=== PATIENT | female | born 1995 | race Caucasian/White ===

== ENCOUNTER 2018-08-25 21:52 | Emergency (ER) | payer OTHER ==
[2018-08-25 22:00] VITALS: BP 137/87; PULSE 128; TEMP 102.7; BMI 20.3
[2018-08-25] MEDS ORDERED: ACETAMINOPHEN 500 MG TABLET (FP) PO ONE (22:02)
[2018-08-25] MEDS ORDERED: OSELTAMIVIR PHOSPHATE 75 MG CAPSULE ONE (22:06)
[2018-08-25] MEDS ORDERED: OSELTAMIVIR PHOSPHATE 75 MG CAPSULE PO ONE (22:06)
[2018-08-25] MEDS ORDERED: ACETAMINOPHEN 500 MG TABLET (FP) ONE (22:06)
--- NOTE | 2018-08-25 22:06 | PDOC ---
History of Present Illness - General History Source: Patient Exam Limitations: No Limitations - History of Present Illness Initial Comments: 08/25/18 22:06 A portion of this note was documented by scribe services under my direction. I have reviewed the details of the note, within reason, and agree with the documentation with the following case summary and management plan written by me. Patient treated in the ED. Nursing notes are reviewed and incorporated into the medical decision-making. Vital signs reviewed. Assessment plan: This is a 23-year-old female who did not get her flu shot this year and comes in with flulike symptoms. Patient has had symptoms less than 24 hours he started on Tamiflu. Patient given first dose here in the emergency room. Patient also given Tylenol and prescription sent to the pharmacy for more Tamiflu patient discharged home will follow-up with her primary care doctor <Viki Porter I - Last Filed: 08/25/18 22:10> - General History Source: Patient Exam Limitations: No Limitations - History of Present Illness Initial Comments: The patient is a 23 year old female, with no significant past medical history, who presents to the emergency department with flu symptoms. The patient states she woke up this morning feeling achy accompanied with a sore throat and dry cough, which has been progressively getting worse. Patient states she has been experiencing intermittent SOB and some nausea. Patient notes going to urgent care earlier today where she tested negative for the flu and denies having fever at that time. However, she states that when taking her own fever it has been high. Patient denies receiving the flu shot this year. She reports sick contact at work. The patient denies chest pain, headache and dizziness. The patient denies fever , chills, vomit, diarrhea and constipation. The patient denies dysuria, frequency, urgency and hematuria. PAST MEDICAL HISTORY: no significant history PAST SURGICAL HISTORY: no significant history FAMILY HISTORY: no pertinent history SOCIAL HISTORY: Pt lives with family and is employed. MEDICATIONS: reviewed ALLERGIES: As per nursing notes ROS General: (+) general malaise, (+)fever. No chills, no weight loss HEENT: (+) sore throat, No change in vision. No ear pain. CardioVascular: No chest pain Respiratory:(+) shortness of breath, (+)cough, or wheezing. Gastrointestinal: (+) nausea. No vomiting, diarrhea or constipation, No rectal bleeding Genitourinary: No dysuria, hematuria, or frequency Musculoskeletal: (+) muscle ache, No joint pain or swelling Neurologic: No headache, vertigo, dizziness or loss of consciousness Psychiatric: nor depression Skin: No rashes or easy bruising Endocrine: no increased thirst or abnormal weight change Allergic: no skin or latex allergy All other systems reviewed and normal Physical Exam: General: Well-nourished well-developed individual, no acute distress HEENT: Throat: (+) Posterior oropharynx mild erythema. Neck: Supple, no meningeal signs, no lymphadenopathy Eyes::Pupils equal reactive and round, extraocular motion intact Chest: Nontender to palpation Cardiac: S1-S2 normal, regular rate and rhythm, no murmurs rubs or gallops Respiratory: Lungs clear to auscultation bilateral Extremities: Warm, dry, no cyanosis, clubbing, or edema Skin: No rashes Neuro: Alert and oriented x3, nonfocal exam, grossly intact, normal gait Psych: Normal mood and affect 08/25/18 22:21 <Naty Carranza - Last Filed: 08/25/18 22:21> - General Chief Complaint: Cold Symptoms Stated Complaint: VIRAL SYMPTOMS Time Seen by Provider: 08/25/18 21:57 Past History - Immunization History Immunization Up to Date: Yes - Suicide/Smoking/Psychosocial Hx Smoking Status: Yes Smoking History: Current some day smoker Have you smoked in the past 12 months: Yes Number of Cigarettes Smoked Daily: 1 'Breaking Loose' booklet given: 11/10/15 Hx Alcohol Use: Yes Drug/Substance Use Hx: No Substance Use Type: Alcohol <Viki Porter I - Last Filed: 08/25/18 22:10> <Naty Carranza - Last Filed: 08/25/18 22:21> - Past Medical History Allergies/Adverse Reactions: Allergies Allergy/AdvReac Type Severity Reaction Status Date / Time No Known Allergies Allergy Verified 11/10/15 09:29 Home Medications: Ambulatory Orders Naproxen Sodium [Aleve] 1,300 mg PO ONCE 11/10/15 Norethindrone-E.estradiol-Iron [Gildess Fe 1-20 Tablet] 1 each PO DAILY Spironolactone [Aldactone] 50 mg PO DAILY 11/10/15 Oseltamivir Phosphate [Tamiflu] 75 mg PO BID #10 capsule 08/25/18 *Physical Exam - Vital Signs Last Vital Signs Temp Pulse Resp BP Pulse Ox 102.7 F H 128 H 16 137/87 99 08/25/18 21:55 08/25/18 21:55 08/25/18 21:55 08/25/18 21:55 08/25/18 21:55 <Naty Carranza - Last Filed: 08/25/18 22:21> Moderate Sedation - Procedure Monitoring Vital Signs: Procedure Monitoring Vital Signs Temperature 102.7 F H 08/25/18 21:55 Pulse Rate 128 H 08/25/18 21:55 Respiratory Rate 16 08/25/18 21:55 Blood Pressure 137/87 08/25/18 21:55 O2 Sat by Pulse Oximetry (%) 99 08/25/18 21:55 <Naty Carranza - Last Filed: 08/25/18 22:21> ED Treatment Course - Medications Given in the ED: ED Medications Discontinued Medications Generic Name Dose Route Start Last Admin Trade Name Thao PRN Reason Stop Dose Admin Acetaminophen 1,000 mg 08/25/18 22:02 08/25/18 22:09 Tylenol - PO 08/25/18 22:03 1,000 mg ONCE ONE Administration Oseltamivir Phosphate 75 mg 08/25/18 22:06 08/25/18 22:09 Tamiflu - PO 08/25/18 22:07 75 mg ONCE ONE Administration <Naty Carranza - Last Filed: 08/25/18 22:21> *DC/Admit/Observation/Transfer - Discharge Dispostion Decision to Admit order: No <Viki Porter I - Last Filed: 08/25/18 22:10> - Attestations Scribe Attestion: Documentation prepared by Naty Carranza, acting as medical receptionist medical assistant for Viki Porter MD. 08/25/18 22:21 <Naty Carranza - Last Filed: 08/25/18 22:21> Diagnosis at time of Disposition: Influenza - Discharge Dispostion Disposition: HOME Condition at time of disposition: Stable - Prescriptions Prescriptions: Oseltamivir Phosphate [Tamiflu] 75 mg PO BID #10 capsule - Patient Instructions Additional Instructions: You were given the first dose of Tamiflu here in the emergency room so do not need to get your prescription filled until tomorrow. For the fever U can alternate acetaminophen with ibuprofen as often as every 3- 4 hours as needed/ Stay well-hydrated, Return to the emergency department immediately with ANY new, persistent or worsening symptoms. Continue any medications as previously prescribed by your physician. You should follow up with your primary doctor as soon as possible regarding today's emergency department visit. . Please make sure your doctor reviews the results of your emergency evaluation. Thank you for coming to the Emergency Department today for your care. It was a pleasure to see you today. Please note that your evaluation is INCOMPLETE until you follow-up with your doctor. - Post Discharge Activity Forms/Work/School Notes: Back to Work, Back to School
== END 2018-08-25 22:15 | disposition home or self-care (01) ==
LOC: FER 21:52
DX: J11.1 Influenza due to unidentified influenza virus with other respiratory manifestations (principal); F17.210 Nicotine dependence, cigarettes, uncomplicated
CPT/HCPCS: 99281-25

== ENCOUNTER 2019-03-10 02:32 | Emergency (ER) | payer OTHER ==
[2019-03-10 02:40] VITALS: BP 120/83; PULSE 98; TEMP 98.6; BMI 20.7
--- NOTE | 2019-03-10 02:48 | PDOC ---
History of Present Illness - General Chief Complaint: Sore Throat Stated Complaint: SORE THROAT Time Seen by Provider: 03/10/19 02:41 History Source: Patient Exam Limitations: No Limitations - History of Present Illness Initial Comments: 03/10/19 02:41 This is a 24-year-old female who comes in complaining of a sore throat 4 days. Patient denies any fevers or chills. Patient said she is taking Bactrim and is concerned that maybe causing the sore throat. Patient otherwise denies any rashes or any other complaints. Allergies: as per nursing notes Past Medical History: none Social history: Lives with family. No smoking. No alcohol. No illicit drugs. Surgical history: None General: No fevers or chills, no weakness, no weight loss HEENT: No change in vision. + sore throat,. No ear pain, CardioVascular: no chest discomfort. No shortness of breath Respiratory:No cough, or wheezing. Gastrointestinal: no nausea, vomiting, diarrhea or constipation, No rectal bleeding Genitourinary: No dysuria, hematuria, or frequency Musculoskeletal: No joint or muscle pain or swelling Neurologic: No headache, vertigo, dizziness or loss of consciousness Psychiatric: nor depression Skin: No rashes or easy bruising Endocrine: no increased thirst or abnormal weight change Allergic: no skin or latex allergy All other systems reviewed and normal GENERAL: The patient is awake, alert, and fully oriented, in no acute distress. HEAD: Normal with no signs of trauma. Posterior oropharynx there is a moderate amount of erythema, there is no exudate , tonsils are normal color. Throat with associated small vesicular lesions. There is no bilateral submandibular adenopathy. EYES: Pupils equal, round and reactive to light, extraocular movements intact, sclera anicteric, conjunctiva clear. EXTREMITIES:atraumatic, Normal range of motion, no edema. NEUROLOGICAL: Normal speech, normal gait. PSYCH: Normal mood, normal affect. SKIN: Warm, Dry, normal turgor, no rashes or lesions noted. Assessment and plan: This is a 24-year-old female with a viral pharyngitis. Patient was reassured this is viral was told to continue her Bactrim and follow up with her primary care doctor. Past History - Past Medical History Allergies/Adverse Reactions: Allergies Allergy/AdvReac Type Severity Reaction Status Date / Time No Known Allergies Allergy Verified 11/10/15 09:29 Home Medications: Ambulatory Orders Norethindrone-E.estradiol-Iron [Gildess Fe 1-20 Tablet] 1 each PO DAILY Sulfamethoxazole/Trimethoprim [Bactrim Ds -] 1 tab PO BID 03/10/19 COPD: No Other medical history: CELLULITIS - Immunization History Immunization Up to Date: Yes - Suicide/Smoking/Psychosocial Hx Smoking Status: Yes Smoking History: Never smoked Have you smoked in the past 12 months: Yes Number of Cigarettes Smoked Daily: 1 'Breaking Loose' booklet given: 11/10/15 Hx Alcohol Use: Yes Drug/Substance Use Hx: No Substance Use Type: Alcohol *Physical Exam - Vital Signs Last Vital Signs Temp Pulse Resp BP Pulse Ox 98.6 F 98 H 16 120/83 100 03/10/19 02:35 03/10/19 02:35 03/10/19 02:35 03/10/19 02:35 03/10/19 02:35 *DC/Admit/Observation/Transfer Diagnosis at time of Disposition: Acute viral pharyngitis - Discharge Dispostion Disposition: HOME Condition at time of disposition: Stable Decision to Admit order: No - Referrals - Patient Instructions Additional Instructions: Take Motrin as needed for the pain. Return to the emergency department immediately with ANY new, persistent or worsening symptoms. Continue any medications as previously prescribed by your physician. You should follow up with your primary doctor as soon as possible regarding today's emergency department visit. . Please make sure your doctor reviews the results of your emergency evaluation. Thank you for coming to the Emergency Department today for your care. It was a pleasure to see you today. Please note that your evaluation is INCOMPLETE until you follow-up with your doctor. - Post Discharge Activity
== END 2019-03-10 02:51 | disposition home or self-care (01) ==
LOC: FER 02:32
DX: J02.8 Acute pharyngitis due to other specified organisms (principal); B97.89 Other viral agents as the cause of diseases classified elsewhere; Z72.0 Tobacco use
CPT/HCPCS: 99281-25

== ENCOUNTER 2019-07-23 18:35 | Emergency (ER) | payer OTHER ==
[2019-07-23 18:45] VITALS: BP 134/86; PULSE 97; TEMP 98.1; BMI 20.3
--- NOTE | 2019-07-23 19:57 | PDOC ---
Documentation entered by Deo Kinney SCRIBE, acting as scribe for Liz Vance MD. Liz Vance MD: This documentation has been prepared by the Nirmal griffin Aiswarya, SCRIBE, under my direction and personally reviewed by me in its entirety. I confirm that the documentation accurately reflects all work, treatment, procedures, and medical decision making performed by me. History of Present Illness - General Chief Complaint: CVA/TIA Stated Complaint: RT SIDE NUMBNESS History Source: Patient Exam Limitations: No Limitations - History of Present Illness Initial Comments: 07/23/19 19:32 The patient is a 24 year old female, with no significant PMH, who presents to the emergency department with decreased sensation to the right side for approximately 45 minutes. The patient states symptoms began as sinusitis and now currently reports numbness/ mild weakness to the right side of her face, arms and legs. Patient states she was just sitting on her couch when decreased sensation began. The patient takes Augmentin and oral contraceptive since October. Her LMP was last week. The patient denies having similar symptoms in the past.Denies any trauma or head injury. Denies chest pain, shortness of breath, headache and dizziness.Denies fever, chills, nausea, vomit, diarrhea and constipation. Allergies: NKDA Past surgical history: None reported Social history: None reported PCP: None reported Past History - Past Medical History Allergies/Adverse Reactions: Allergies Allergy/AdvReac Type Severity Reaction Status Date / Time No Known Allergies Allergy Verified 11/10/15 09:29 Home Medications: Ambulatory Orders Norethindrone-E.estradiol-Iron [Gildess Fe 1-20 Tablet] 1 each PO DAILY Sulfamethoxazole/Trimethoprim [Bactrim Ds -] 1 tab PO BID 03/10/19 COPD: No - Immunization History Immunization Up to Date: Yes - Psycho Social/Smoking Cessation Hx Smoking Status: Yes Smoking History: Never smoked Have you smoked in the past 12 months: Yes Number of Cigarettes Smoked Daily: 1 'Breaking Loose' booklet given: 11/10/15 Hx Alcohol Use: Yes Drug/Substance Use Hx: No Substance Use Type: Alcohol Review of Systems - Review of Systems Able to Perform ROS?: Yes Comments:: 07/23/19 19:33 GENERAL/CONSTITUTIONAL: No fever or chills. No weakness. HEAD, EYES, EARS, NOSE AND THROAT: No change in vision. No ear pain or discharge. No sore throat. CARDIOVASCULAR: No chest pain or shortness of breath. RESPIRATORY: No cough, wheezing, or hemoptysis. MUSCULOSKELETAL: No joint or muscle swelling or pain. No neck or back pain. SKIN: No rash NEUROLOGIC: +decreased sensation to right side of face, arm and legs. No headache, vertigo, loss of consciousness. ENDOCRINE: No increased thirst. No abnormal weight change. HEMATOLOGIC/LYMPHATIC: No anemia, easy bleeding, or history of blood clots. ALLERGIC/IMMUNOLOGIC: No hives or skin allergy. *Physical Exam - Vital Signs Last Vital Signs Temp Pulse Resp BP Pulse Ox 98.1 F 97 H 20 134/86 100 07/23/19 18:36 07/23/19 18:36 07/23/19 18:36 07/23/19 18:36 07/23/19 18:36 - Physical Exam 07/23/19 19:49 GENERAL: Awake, alert, and fully oriented, in no acute distress HEAD: No signs of trauma EYES: PERRLA, EOMI, sclera anicteric, conjunctiva clear LUNGS: Breath sounds equal, clear to auscultation bilaterally. No wheezes, and no crackles HEART: Regular rate and rhythm, normal S1 and S2, no murmurs, rubs or gallops ABDOMEN: Soft, nontender, normoactive bowel sounds. No guarding, no rebound. No masses EXTREMITIES: Normal range of motion, no edema. No clubbing or cyanosis. No cords, erythema, or tenderness NEUROLOGICAL: Cranial nerves II through XII grossly intact. AOX3. Intact light pin and prick sensation on patients face, arm and feet. Normal speech. SKIN: Warm, Dry, normal turgor, no rashes or lesions noted. Medical Decision Making - Medical Decision Making 07/23/19 19:51 pt presents to the ED complaining of subjective numbness to her face, arms and hands and legs and feet that excludes her midsection. Neuro exam is completely normal. Symptoms are inconsistent with CVA, cord compression or other neurologic emergencies. Patient has been instructed to follow up with neurology and to return immediately to the ED for worsening symptoms. Discharge - Discharge Information Problems reviewed: Yes Clinical Impression/Diagnosis: Skin sensation disturbance Condition: Good Disposition: HOME - Admission No - Follow up/Referral Referrals: Avinash Corcoran MD [Staff Physician] - - Patient Discharge Instructions Patient Printed Discharge Instructions: DI for Numbness/tingling Additional Instructions: you came to the ED complaining of numbness and tingling to your face, arms and legs. You do not have a neurologic emergency that requires immediate treatment , but you should follow up with a neurologist if these symptoms persist. Return to the Ed for severe pain, worsening numbness, weakness on one side of the body, difficulties with walking or speech or other new or worsening symptoms. Follow up with your doctor. - Post Discharge Activity
== END 2019-07-23 19:56 | disposition home or self-care (01) ==
LOC: FER 18:35
DX: R20.0 Anesthesia of skin (principal); R20.2 Paresthesia of skin
CPT/HCPCS: 99281-25

== ENCOUNTER 2021-12-10 14:00 | Emergency (ER) | payer OTHER ==
[2021-12-10 14:16] VITALS: BMI 21.9
[2021-12-10] MEDS ORDERED: IBUPROFEN 400 MG TABLET (FP) PO ONE ×2 (14:17→14:29)
[2021-12-10 14:44] LABS: HCG,QUALITATIVE URINE Negative
[2021-12-10 15:22] LABS: EPITHELIAL CELLS FEW /hpf
[2021-12-10 15:46] VITALS: BP 118/72; PULSE 100; TEMP 99.1
== END 2021-12-10 16:17 | disposition home or self-care (01) ==
LOC: FER 14:00
DX: U07.1 COVID-19 (principal)
CPT/HCPCS: 0241U-QW; 81003; 81015; 84703; 87077; 87086; 99283-25